=== PATIENT | male | born 2005 | race Caucasian/White ===

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

== ENCOUNTER 2024-11-05 02:48 | Emergency (ER) | payer OTHER | END 2024-11-05 03:20 | disposition other institution, planned readmission (95) | LOC: ED 02:48 | DX: S61.412A Laceration without foreign body of left hand, initial encounter (principal); X78.9XXA Intentional self-harm by unspecified sharp object, initial encounter ==

== ENCOUNTER 2025-04-25 00:34 | Emergency (ER) | payer OTHER ==
[~2025-04-25] VITALS: Ht 170.2 cm; Wt 90.0 kg
[2025-04-25] MEDS ORDERED: DIPHTH,PERTUSS(ACELL),TET VAC 0.5 ML SYRINGE IM ONE (00:45)
[2025-04-25 00:55] VITALS: BP 131/86
== END 2025-04-25 00:55 | disposition left against medical advice (07) ==
LOC: ED 00:34
DX: S01.81XA Laceration without foreign body of other part of head, initial encounter (principal); T75.4XXA Electrocution, initial encounter; V89.2XXA Person injured in unspecified motor-vehicle accident, traffic, initial encounter; Z53.29 Procedure and treatment not carried out because of patient's decision for other reasons
CPT/HCPCS: 80053; 85025; 99284-25; G0480